=== PATIENT | male | born 1965 | race Caucasian/White ===

== ENCOUNTER 2020-02-18 03:01 | Outpatient (CLI) | payer OTHER, SELFPAY ==
[2020-02-18 18:39] LABS: SARS-CoV-2 RNA PCR Negative
== END 2020-02-18 03:02 | disposition home or self-care (01) ==
LOC: ANHCOVIDDT 03:02
PROVIDERS: PCP Internal Medicine; Visit Provider Internal Medicine Gastroenterology
DX: Z01.812 Encounter for preprocedural laboratory examination (principal); Z20.828 Contact with and (suspected) exposure to other viral communicable diseases
CPT/HCPCS: 87635; C9803; U0003

== ENCOUNTER 2020-02-20 01:22 | Day surgery (SDC) | payer OTHER, SELFPAY ==
[2020-02-16 13:54] VITALS: BMI 35.4
[2020-02-20 06:57] VITALS: BP 123/90; PULSE 78; RESP 18; TEMP 36.3; O2SAT 97; BMI 34.6
[2020-02-20] MEDS: LACTATED RINGERS 1,000 ML 150 ML IV CONT (07:09)
--- NOTE | 2020-02-20 08:00 | PM.HPGS ---
History of Present Illness History of Present Illness Consent: Risks, benefits, and alternatives have been discussed and questions answered. Patient agrees to proceed with procedure. Chief complaint: Neoplasm Screening Narrative: Blake Villafana is a 54 year old male here for first screening colonoscopy Review of Systems Constitutional: Constitutional: Denies headache(s) and Denies weakness Eyes: Eyes: Denies blurry vision ENT: Reports Normal hearing present, Denies headache(s) and Denies neck pain Cardiovascular: Cardiovascular: Denies chest pain and Denies dyspnea Respiratory: Respiratory: Denies dyspnea Gastrointestinal: Gastrointestinal: Reports no additional gastrointestinal complaints Genitourinary: Genitourinary: Denies dysuria Musculoskeletal: Musculoskeletal: Denies neck pain Integumentary/Breasts: Skin/Breast: Denies dry skin Neurologic: Reports Normal hearing present, Denies headache(s) and Denies weakness Psychiatric: Psychiatric: Denies anxiety Endocrine: Endocrine: Denies change in body appearance Hematologic/Lymphatic: Hematologic/Lymphatic: Denies easy bleeding Allergic/Immunologic: Allergic/Immunologic: Denies urticaria [facility] Past Medical History Medical History (Updated 02/20/20 @ 08:18 by Duc Beach MD) Colon cancer screening Mixed hyperlipidemia Family History Family History (Updated 05/24/15 @ 14:13 by DOCTOR UNKNOWN) Father Acute myocardial infarction Mother Family history of multiple sclerosis Other Hypertension Social History Social History Smoking status: Never smoker Alcohol intake: current Drinks per week: 6 Alcohol use details: BEERS Substance use: never Substance use type: does not use Living arrangements: with family Spiritual care concerns: No Meds Home Medications and Allergies Home Medications Medication Instructions Recorded Confirmed Type omega-3 fatty acids 1,000 mg 1,000 mg PO DAILY 01/01/20 02/16/20 History capsule atorvastatin 20 mg tablet 20 mg PO DAILY #30 tablet 01/09/20 02/16/20 Rx peg 3350-electrolytes 236 240 ml PO Q10M #4000 ml 02/18/20 02/20/20 Rx gram-22.74 gram-6.74 gram-5.86 gram solution Allergies Allergy/AdvReac Type Severity Reaction Status Date / Time No Known Allergies Allergy Verified 02/20/20 06:56 Vital Signs Vital Signs - 24 hr 02/20/20 06:57 Temperature 97.4 F L Pulse Rate 78 Respiratory Rate 18 Blood Pressure 123/90 Pulse Oximetry 97 Exam Const: General: comfortable and no acute distress HENMT: General nose exam: Normal nares present Eyes: General: appearance normal, both eyes and all related structures Neck: Neck: no JVD Resp: Auscultation: clear to auscultation bilaterally Cardio: Rate: regular rate Rhythm: regular rhythm GI: Inspection: non-distended GI Palp: Yes Soft to palpation Skin: General skin exam: normal color Neuro: General: gait normal Speech: normal speech Extrem: General: normal to inspection Psych: Mental Status: mental status grossly normal Assessment and Plan Assessment and plan (1) Colon cancer screening: Code(s): Z12.11 - Encounter for screening for malignant neoplasm of colon Status: Acute Assessment and Plan: will proceed with colonoscopy
--- NOTE | 2020-02-20 08:06 | WPDANESEPPF ---
Anes - Initial Pre Proc Eval Procedure: Operation Date: 02/20/20 08:00 Proposed Procedures p Screening Colonoscopy - Duc Beach MD Date/Time: 02/20/20 08:06 Surgeon: Duc Beach MD Pre Op Diagnosis: Neoplasm Screening Patient Data Age: 54 Gender: M Height: 6 ft 1 in Weight: 119.1 kg Last Vital Signs Temp 97.4 F L 02/20/20 06:57 Pulse 78 02/20/20 06:57 Resp 18 02/20/20 06:57 BP 123/90 02/20/20 06:57 Pulse Ox 97 02/20/20 06:57 Allergies Allergy/AdvReac Type Severity Reaction Status Date / Time No Known Allergies Allergy Verified 02/20/20 06:56 Home Medications Medication Instructions Recorded Confirmed Type omega-3 fatty acids 1,000 mg 1,000 mg PO DAILY 01/01/20 02/16/20 History capsule atorvastatin 20 mg tablet 20 mg PO DAILY #30 tablet 01/09/20 02/16/20 Rx peg 3350-electrolytes 236 240 ml PO Q10M #4000 ml 02/18/20 02/20/20 Rx gram-22.74 gram-6.74 gram-5.86 gram solution Patient hx anesthesia problems: none Family hx anesthesia problems: none PMFSH Past Medical History Medical History (Updated 02/20/20 @ 08:05 by Rajesh Gregg MD) Mixed hyperlipidemia Family History Family History (Updated 05/24/15 @ 14:13 by DOCTOR UNKNOWN) Father Acute myocardial infarction Mother Family history of multiple sclerosis Other Hypertension Social History Social History Smoking status: Never smoker Alcohol intake: current Drinks per week: 6 Alcohol use details: BEERS Substance use: never Substance use type: does not use Living arrangements: with family Spiritual care concerns: No Anes - Eval Final PreProcedure Day of Procedure 02/20/20 08:06 Patient weight: overweight Heart: regular rate and rhythm Lungs: clear to auscultation Airway: Mallampati scale class II Neurological: alert and oriented Last oral intake: >/= 8 hours ASA classification: II Emergent: no Anesthetic plan: proceed Anesthesia type and monitoring: general GIVS and standard monitoring Informed Consent: The patient's anesthetic plan and its attendant risks and benefits were discussed with the patient/family/POA. Questions were solicited and answers provided to the satisfaction of the patient/family/POA.
[2020-02-20 08:22] VITALS: BP 111/79; PULSE 66; RESP 28; O2SAT 93
[2020-02-20 08:32] VITALS: BP 117/78; PULSE 62; RESP 17; O2SAT 96
[2020-02-20 08:42] VITALS: BP 123/81; PULSE 60; RESP 16; O2SAT 96
== END 2020-02-20 08:47 | disposition home or self-care (01) ==
PROVIDERS: PCP Internal Medicine; Visit Provider Internal Medicine Gastroenterology
PROC: 0DJD8ZZ Inspection of Lower Intestinal Tract, Via Natural or Artificial Opening Endoscopic (ICD-10-PCS; CPT 45378; principal; 2020-02-20 08:00)
DX: Z12.11 Encounter for screening for malignant neoplasm of colon (principal); E78.2 Mixed hyperlipidemia; K57.30 Diverticulosis of large intestine without perforation or abscess without bleeding
CPT/HCPCS: 45378; 87635; C9803; J2704; J7120; U0003

== ENCOUNTER 2024-01-15 15:32 | Outpatient (CLI) | payer BC, SELFPAY ==
--- NOTE | ~2024-01-15 | XR_ITS ---
EXAMINATION: XR finger 4th RT min 2V DATE: 01/15/2024 15:57 INDICATION: Injury to the right fourth digit TECHNIQUE: Dorsal palmar, lateral and oblique views of the right fourth digit were obtained COMPARISON: None FINDINGS: There is 3 mm dorsal subluxation of the right fourth middle phalanx at the proximal interphalangeal j oint. There is dorsal and ulnar subluxation at the fifth proximal interphalangeal joint with and abdirashid re osteoarthritis with remodeling and loss of bone stock at the ulnar side of the head of the fifth p roximal phalanx. Corticated ossicle overlying the radial side of the head of the fifth proximal phala nx which could represent either chronic nonunited fracture fragment or heterotopic ossicle. No acute fracture. Mild osteoarthritis at the remaining interphalangeal joints. IMPRESSION: 1. 3 mm dorsal subluxation at the fourth proximal interphalangeal joint. No acute fracture. 2. Likely chronic/ulnar subluxation at the fifth proximal interphalangeal joint with severe secondary osteoarthritis. Reviewed, dictated and finalized at location A. IMPRESSION: 1. 3 mm dorsal subluxation at the fourth proximal interphalangeal joint. No acu te fracture. 2. Likely chronic/ulnar subluxation at the fifth proximal interphalangeal joint with severe secondary osteoarthritis.
== END 2024-01-15 15:33 | disposition home or self-care (01) ==
LOC: ANHIMG 15:36
PROVIDERS: PCP Family Medicine; Visit Provider Nurse Practitioner Family
DX: S69.90XA Unspecified injury of unspecified wrist, hand and finger(s), initial encounter (principal); X58.XXXA Exposure to other specified factors, initial encounter
CPT/HCPCS: 73140

== ENCOUNTER 2024-03-06 15:53 | Outpatient (CLI) | payer BC, SELFPAY ==
--- NOTE | ~2024-03-06 | XR_ITS ---
XR hip RT min 2V Ordering provider: Ashwini Jose APRN History: . M25.551 - Pain in right hip . Comparison: None. FINDINGS: BONES: No acute fracture or dislocation. HIP JOINT SPACES: Moderate osteoarthritic changes. SACROILIAC JOINT SPACES/LUMBAR SPINE: The sacroiliac joint spaces are normal. Mild degenerative suarez es of the visualized lower lumbar spine. PUBIC SYMPHYSIS: Normal. SOFT TISSUES: Normal. IMPRESSION: No acute osseous abnormality pelvis and right hip. Mild to moderate right hip osteoarthritic changes. Reviewed, dictated and finalized at location A.
== END 2024-03-06 15:54 | disposition home or self-care (01) ==
LOC: ANHIMG 15:55
PROVIDERS: PCP Family Medicine; Visit Provider Nurse Practitioner Family
DX: M16.11 Unilateral primary osteoarthritis, right hip (principal)
CPT/HCPCS: 73502

== ENCOUNTER 2024-03-19 16:31 | Outpatient (CLI) | payer BC, SELFPAY ==
--- NOTE | ~2024-03-19 | XR_ITS ---
EXAMINATION: XR finger 4th RT min 2V DATE: 03/19/2024 16:50 INDICATION: Phalangeal fracture at the right fourth digit TECHNIQUE: Dorsal palmar, lateral and 2 oblique views of the right fourth digit were obtained COMPARISON: None FINDINGS: There is increasing dorsal/ulnar subluxation of the right fourth middle phalanx of the proximal inter phalangeal joint. There is a new incongruity along the proximal articular surface at the base of the middle phalanx with approximately 3 mm step-off between the dorsal aspect of the articular surface an d the volar side of the articular surface which could be due to either an impacted fracture or accele rated osteoarthritis with remodeling of the articular surface resulting from the malalignment. Simila r more advanced malalignment with dorsal and ulnar subluxation and angulation at the fifth proximal i nterphalangeal joint with advanced osteoarthritis with remodeling of both the base of the middle phal anx and head of the proximal phalanx. Additional mild osteoarthritis at a few of the remaining visual ized interphalangeal joints as well as at the second-fourth metacarpophalangeal joints. IMPRESSION: 1. Progression of dorsal and ulnar subluxation at the right fourth proximal interphalangeal joint wit h incongruity along the articular surface at the base of the middle phalanx which could represent eit her an impacted fracture or remodeling of the articular surface due to advanced secondary osteoarthri tis. 2. Similar more advanced findings of chronic dorsal/ulnar subluxation and advanced osteoarthritis at the fifth proximal interphalangeal joint. Reviewed, dictated and finalized at location A. IMPRESSION: 1. Progression of dorsal and ulnar subluxation at the right fourth proximal int erphalangeal joint with incongruity along the articular surface at the base of the middle phalanx which could represent either an impacted fracture or remodel ing of the articular surface due to advanced secondary osteoarthritis. 2. Similar more advanced findings of chronic dorsal/ulnar subluxation and advan elyse osteoarthritis at the fifth proximal interphalangeal joint.
== END 2024-03-19 16:32 | disposition home or self-care (01) ==
LOC: ANHIMG 16:33
PROVIDERS: PCP Family Medicine; Visit Provider Family Medicine
DX: S62.609A Fracture of unspecified phalanx of unspecified finger, initial encounter for closed fracture (principal); X58.XXXA Exposure to other specified factors, initial encounter
CPT/HCPCS: 73140

== ENCOUNTER 2024-04-29 14:02 | Outpatient (CLI) | payer BC, SELFPAY ==
--- NOTE | ~2024-04-29 | CT_ITS ---
EXAMINATION: CT hand RT wo con DATE: 04/29/2024 14:25 INDICATION: Malalignment and possible fracture at the fourth proximal interphalangeal joint. TECHNIQUE: High resolution computed tomography (CT) of the right hand was performed without intraveno us contrast. Additional sagittal and coronal reconstructions were performed. Additional rotating surf chetan rendered 3-D images of the hand were created the request of the referring physician. Automated ex posure control and iterative reconstruction technique were employed. The dose-length product was 562. 57 mGy-cm. COMPARISON: None FINDINGS: There is an age-indeterminate ununited displaced fracture at the palmar base of the right fourth midd le phalanx which remains normally positioned overlying the articular surface of the head of the fourt h proximal phalanx. The remainder of the middle phalanx is dorsally dislocated with approximately 5 m m proximal and dorsal displacement of the remainder of the middle phalanx with respect to both the sm all fracture fragment as well as the head of the proximal phalanx. There is additional mild ulnar ang ulation the middle phalanx with respect to the proximal phalanx. At the fifth proximal interphalangeal joint there is similar ulnar angulation and dorsal/ulnar disloc ation and proximal migration of the fifth middle phalanx with respect to the head of the proximal pha lanx. There appears be a similar but chronic appearing fracture along the palmar base of the middle p halanx with small corticated fragment overlying the central aspect the head of the proximal phalanx. There appears be secondary severe osteoarthritis at the fifth proximal interphalangeal joint with rem odeling of the articular cortices at both the base of the middle phalanx and head of the proximal pha lanx. There is an additional tiny corticated ossicle positioned along the ulnar side of the head of t he fifth proximal phalanx which could represent either a second tiny displaced fracture fragment or h eterotopic ossification related to chronic soft tissue injury potentially of the ulnar collateral lig ament complex. No other fractures identified. There is polyarticular osteoarthritis at the right hand and wrist, mod erate severity at the triscaphe joint with prominent subarticular cystlike change at the distal pole of the scaphoid and mild at the majority the remaining joints at the hand and wrist. IMPRESSION: 1. Chronic appearing fracture dislocation fifth middle phalanx at the proximal interphalangeal joint. 2. Similar age-indeterminate but likely more recent fracture dislocation of the right fourth middle p halanx at the proximal interphalangeal joint. Reviewed, dictated and finalized at location A. ING DRUM OPERATOR IMPRESSION: 1. Chronic appearing fracture dislocation fifth middle phalanx at the proximal interphalangeal joint. 2. Similar age-indeterminate but likely more recent fracture dislocation of the right fourth middle phalanx at the proximal interphalangeal joint.
== END 2024-04-29 14:03 | disposition home or self-care (01) ==
PROVIDERS: PCP Family Medicine; Visit Provider Plastic Surgery
DX: S62.609A Fracture of unspecified phalanx of unspecified finger, initial encounter for closed fracture (principal); X58.XXXA Exposure to other specified factors, initial encounter
CPT/HCPCS: 73200

== ENCOUNTER 2024-05-29 09:12 | Outpatient (CLI) | payer BC, SELFPAY ==
--- NOTE | 2024-05-29 14:08 | ECG_ITS ---
Test Date: 2024-05-29 14:33:27 Measurements Intervals [place] Rate: 62 P: 39 PA: 171 QRS: -18 QRSD: 99 T: 7 QT: 404 QTc: 411 Interpretive Statements SINUS RHYTHM LOW QRS VOLTAGE IN PRECORDIAL LEADS [QRS DEFLECTION < 1.0 mV IN CHEST LEADS] MODERATE VOLTAGE CRITERIA FOR LVH, CONSIDER NORMAL VARIANT [MEETS CRITERIA IN ONE OF: R(aVL), S(V1), R(V5), R(V5/V6)+S(V1)] POSSIBLE ANTERIOR MYOCARDIAL INFARCTION [30 ms Q WAVE IN V3/V4, OR R < 0.2 mV IN V4], OF INDETERMINATE AGE No previous ECG available for comparison Electronically Signed On 06-02-2024 14:33:01 CORPORATE LEGAL SECRETARY by Yordan Quiñones M.D.
== END 2024-05-29 09:13 | disposition home or self-care (01) ==
PROVIDERS: PCP Family Medicine; Visit Provider Surgery
DX: Z01.818 Encounter for other preprocedural examination (principal); K42.9 Umbilical hernia without obstruction or gangrene
CPT/HCPCS: 36415; 86850; 86900; 86901; 93005

== ENCOUNTER 2024-06-05 01:22 | Day surgery (SDC) | payer BC, SELFPAY ==
[2024-05-26 08:49] VITALS: BMI 34.0
--- NOTE | 2024-05-26 09:04 | SUR.PREOP ---
Report to the Outpatient Waiting Room, entrance under the green pavilion located off [facility], at time 1000 on date 06-05-24. Planned Procedure Time: 1200.? Time changes happen often and if your time is changed the preop area will call you the afternoon before. - You and your visitor will be asked to self-screen and do not enter if you have any COVID symptoms. Please call surgeon if you need to reschedule. - A mask is optional within the hospital at this time. Patients may have clear liquids (water, carbonated beverages, clear teas, apple juice) until 3 hours prior to surgery with a maximum of 20 ounces. - No food from midnight until time of surgery and no smoking. This includes no chewing gum, candy or mints. - Infants may have breast milk until 4 hours before surgery, formula 6 hours prior to surgery. - Children will be allowed to drink immediately following surgery.? If applicable, please bring a bottle or sippy cup to assist with drinking. Juice, water, soda, and popsicles are readily available.? For infants on formula, please bring formula the day of surgery.? Pacifiers are allowed. Take only the following medications with a SIP of water on the morning of surgery: N/A DO NOT STOP ANY OF YOUR OTHER PRESCRIPTION MEDICATIONS PRIOR TO SURGERY EXCEPT THE FOLLOWING Medications to discontinue per physician VITAMINS AND SUPPLIMENTS X 3 DAYS Date to take last dose Sunday06-01-24 Please no make-up, nail indian, hairspray, perfume, deodorant, or body powder the day of surgery.? No jewelry (including any body piercings) or valuables the day of surgery, leave them at home.? Please take a shower or bath the night before, or the morning of, surgery with an antibacterial soap.? Wear comfortable, loose fitting clothing.? Children are encouraged to wear pajamas. - Jewelry must be removed prior to entering the operating room.? Rings and piercings that are not removed may be cut off. - The hospital will not accept responsibility for valuables.? - Please leave all valuables, including medications, at home the day of surgery. If you are going home after surgery, a licensed truck driver's offsider must drive you home.? - NO public transportation without another adult if you receive anesthesia. - We recommend that an adult stay with you for 24 hours following discharge. - We also recommend that you do not drive, make important decision, drink alcoholic beverages, or take any drugs that were not prescribed by your health care provider for at least 24 hours after your discharge time. For Pediatric surgeries, we recommend two adults accompany the child home. Follow any additional instructions given to you from your surgeon. Telephone instructions given to LEIDY ANN and asked if any additional questions and then verbalized understanding. Patient advised to call surgeon office or pre surgery nurse liaison [phone] if any additional questions.
[2024-06-05] VITALS (11 sets, daily range): BP systolic 120–150; BP diastolic 67–100; PULSE 57–72; RESP 12–18; TEMP 36.2–36.6; O2SAT 91–100
--- NOTE | 2024-06-05 10:17 | P.PNAN_ITS ---
Anes - Initial Pre Proc Eval Procedure: Operation Date: 06/05/24 12:00 Proposed Procedures p Robotic Assisted Umbilical Hernia Repair with Mesh - Tanya Mohr MD Date/Time: 06/05/24 10:17 Surgeon: Tanya Mohr MD Pre Op Diagnosis: umbilical hernia Patient Data Age: 59 Gender: M Height: 1.85 m Weight: 120.1 kg Allergies Allergy/AdvReac Type Severity Reaction Status Date / Time No Known Allergies Allergy Verified 05/26/24 09:27 Home Medications ?Medication ?Instructions ?Recorded ?Confirmed ?Type omega-3 fatty acids 1,000 mg 1,000 mg PO DAILY 01/01/20 05/26/24 History capsule (Fish Oil Concentrate) multivitamin 1 tablet PO DAILY 06/20/21 05/26/24 History sildenafil 100 mg tablet 100 mg PO DAILY PRN sexual 05/14/23 05/26/24 Rx activity #15 tabs atorvastatin 40 mg tablet 40 mg PO DAILY #90 tabs 08/17/23 05/26/24 Rx famotidine 40 mg tablet 40 mg PO DAILY PRN acid reflux #90 09/05/23 05/26/24 Rx tabs testosterone cypionate 200 mg/mL 200 mg IM .every two weeks #10 mL 09/05/23 05/26/24 Rx intramuscular oil Patient hx anesthesia problems: none Family hx anesthesia problems: none Results Review: All pre-operative results and documents have been reviewed as part of the pre- operative evaluation. [facility] Past Medical History Medical History Elevated fasting glucose Low testosterone Colon cancer screening Mixed hyperlipidemia Surgical History Surgical History H/O hand surgery repair of broken 5th digit. S/P right rotator cuff repair Family History Family History Father Acute myocardial infarction Mother Family history of multiple sclerosis Other Hypertension Social History Social History Smoking status: Never smoker Second hand tobacco smoke exposure: No Alcohol intake: current Drinks per week: 4 Alcohol use details: beer Substance use: never Substance use type: does not use Lack of Transportation: No Lack of Food: Never True Current Housing: I Have Housing Concerned About Future Housing: No Difficulty Paying Gas/Electric Bills: No Difficulty Paying for Meds: No Currently Unemployed: No Education: High School Diploma/GED Difficulty w/ Childcare or Family Care: No Living arrangements: alone Spiritual care concerns: No Anes - Eval Final PreProcedure Day of Procedure 06/05/24 10:17 Patient weight: obese Heart: regular rate and rhythm Lungs: clear to auscultation Airway: Mallampati scale Neurological: alert and oriented Last oral intake: >/= 8 hours ASA classification: II Emergent: no Anesthetic plan: proceed Anesthesia type and monitoring: general ETT and standard monitoring Results Review: All pre-operative results and documents have been reviewed as part of the pre- operative evaluation. Informed Consent: The patient's anesthetic plan and its attendant risks and benefits were discussed with the patient/family/POA. Questions were solicited and answers provided to the satisfaction of the patient/family/POA.
[2024-06-05] MEDS: LACTATED RINGERS 1,000 ML 30 ML IV CONT ×2 (10:30→12:40)
--- NOTE | 2024-06-05 11:03 | PM.IMHP ---
H&P: HPI History of Present Illness Date/Time: 06/05/24 11:03 Chief Complaint: Periumbilical hernia Narrative: Blake is a 58 y/o male who presents to the office at the request of Dr. Patel for evaluation of a umbilical hernia. Patient states he first noticed this about two years ago. He denies any abdominal pain. States the bulge is reducible. Reports a gradually increase of the size of the bulge. Denies any issues with bowel habits. Review of Systems Review of Systems: All systems reviewed & are unremarkable except as noted in HPI and below PMFSH Past Medical History Medical History Elevated fasting glucose Low testosterone Colon cancer screening Mixed hyperlipidemia Surgical History Surgical History H/O hand surgery repair of broken 5th digit. S/P right rotator cuff repair Family History Family History Father Acute myocardial infarction Mother Family history of multiple sclerosis Other Hypertension Social History Social History Smoking status: Never smoker Second hand tobacco smoke exposure: No Alcohol intake: current Drinks per week: 4 Alcohol use details: beer Substance use: never Substance use type: does not use Lack of Transportation: No Lack of Food: Never True Current Housing: I Have Housing Concerned About Future Housing: No Difficulty Paying Gas/Electric Bills: No Difficulty Paying for Meds: No Currently Unemployed: No Education: High School Diploma/GED Difficulty w/ Childcare or Family Care: No Living arrangements: alone Spiritual care concerns: No Meds Home Medications and Allergies Home Medications ?Medication ?Instructions ?Recorded ?Confirmed ?Type omega-3 fatty acids 1,000 mg 1,000 mg PO DAILY 01/01/20 05/26/24 History capsule (Fish Oil Concentrate) multivitamin 1 tablet PO DAILY 06/20/21 05/26/24 History sildenafil 100 mg tablet 100 mg PO DAILY PRN sexual 05/14/23 05/26/24 Rx activity #15 tabs atorvastatin 40 mg tablet 40 mg PO DAILY #90 tabs 08/17/23 05/26/24 Rx famotidine 40 mg tablet 40 mg PO DAILY PRN acid reflux #90 09/05/23 05/26/24 Rx tabs testosterone cypionate 200 mg/mL 200 mg IM .every two weeks #10 mL 09/05/23 05/26/24 Rx intramuscular oil Allergies Allergy/AdvReac Type Severity Reaction Status Date / Time No Known Allergies Allergy Verified 05/26/24 09:27 Exam Const: General: cooperative, comfortable, no acute distress and obese Resp: Auscultation: clear to auscultation bilaterally Cardio: Rate: regular rate Rhythm: regular rhythm GI: Inspection: normal to inspection, non-distended and obesity GI Palp: Yes abdominal tenderness, Yes Soft to palpation, Yes Tenderness to palpation present (GI) and Yes Hernia present Other: periumbilical hernia measuring approximately 3.5 cm Skin: General skin exam: normal color and no rashes or lesions noted Neuro: General: patient oriented x3 and CN's II-XI intact bilaterally Extrem: General: normal to inspection and full ROM Psych: Appearance: grossly normal Assessment and Plan Assessment and plan (1) Umbilical hernia: Qualifiers: Obstruction and gangrene presence: without obstruction or gangrene Qualified Code(s): K42.9 - Umbilical hernia without obstruction or gangrene Code(s): K42.9 - Umbilical hernia without obstruction or gangrene Status: Acute Assessment and Plan: will set up for robotic assisted repair with mesh
--- NOTE | 2024-06-05 11:05 | WPDHPUPDATE1 ---
History and Physical Update Update Date/Time: 06/05/24 11:05 History and Physical has been reviewed, including an updated exam of the patient. There are NO changes in the patient's condition. Risks, benefits, and alternatives have been discussed and questions answered. Patient agrees to proceed with procedure.
[2024-06-05] MEDS: ACETAMINOPHEN 500 MG TABLET 1000 MG PO (11:15)
[2024-06-05] MEDS: KETOROLAC 15 MG/ML VIAL (*BKC) IV PUSH (11:15)
[2024-06-05] MEDS: ceFAZolin 3 GM/D5W 100 ML 100 ML IVPB (11:36)
[2024-06-05] MEDS: BUPIVACAINE/EPINEPHRINE 0.5% 10 ML VIAL 30 ML INFILTRATE (11:52)
--- NOTE | 2024-06-05 12:54 | W.PM.PROC2 ---
Procedure Note - Detailed Date of Procedure 06/05/24 Pre-op Diagnosis umbilical hernia Post-op Diagnosis Same Procedure Performed Robotic assisted repair incarcerated umbilical hernia with defect measuring 3.5 cm Surgeon Tanya Mohr MD Anesthesia General and Local Indications 59 y/o M presenting c moderate sized symptomatic umbilical hernia Findings 3.5 cm umbilical hernia with incarcerated preperitoneal fat and omentum Description of Procedure The patient was taken the operating room placed in the supine position. After adequate induction of general anesthesia, the patient was prepped and draped in normal sterile fashion. A time-out was then done to verify the patient's identity as well as the procedure being performed. I began by making a 8 mm incision in the left upper quadrant. Through this, a Veress needle was placed into the peritoneal cavity and CO2 gas was insufflated. After adequate pneumoperitoneum was achieved, a 8 mm trocar was placed through this incision. I then placed the laparoscope through this trocar site and under direct visualization I placed a 8 mm port in the left mid abdomen as well as an additional 8 mm port in the left lower abdomen. The robot was then docked to the 3 port sites. I then went to the robotic console. I began by identifying the hernia. A moderate-sized incarcerated umbilical hernia was noted. I then was able to reduce this hernia. The hernia was noted to contain a large amount of preperitoneal fat and omentum. Once reduced, I also reduced and dissected out the hernia sac. I then closed the approximately 3.5 cm defect with 0 strata fix suture. I then placed a 15 x 10 cm Ventralight mesh into the abdominal cavity. The positional stitch was placed in the middle of the mesh and brought up centering the mesh over the defect. Once this was done, I used 2 x 2 0 V lock suture to suture the mesh to the abdominal wall. Once the mesh was sutured in, I was happy with our tension-free repair. The mesh was noted to have good overlap of the defect. At this point, the robot was undocked and all ports were removed. All port sites were then closed with 4 O Monocryl subcuticular suture. The patient tolerated the procedure well, is extubated in the operating room postoperative, and will be transferred to the recovery room in stable condition. Implants 15 x 10 cm Ventralight mesh Estimated Blood Loss 10 Drains No Packing No Pathology None sent Complications No immediate complications Condition Stable Disposition PACU [facility] Billing Surgery - Charge Forward: Surgery Billing
[2024-06-05] MEDS: fentaNYL CITRATE INJ (*CRX) 100 MCG/2 ML VIAL 25 MCG IV PUSH ×4 (12:56→13:44)
[2024-06-05] MEDS: oxyCODONE HCL (*CRX) 5 MG TAB IR PO (14:15)
== END 2024-06-05 15:10 | disposition home or self-care (01) ==
PROVIDERS: PCP Family Medicine; Visit Provider Surgery
PROC: (CPT 49594; principal; 2024-06-05 12:00)
DX: K42.9 Umbilical hernia without obstruction or gangrene (principal); E29.1 Testicular hypofunction; E66.9 Obesity, unspecified; Z68.34 Body mass index [BMI] 34.0-34.9, adult; Z98.890 Other specified postprocedural states; Z82.49 Family history of ischemic heart disease and other diseases of the circulatory system
CPT/HCPCS: 49594; S2900; A9270; C1781; J0690; J1885; J2250; J2270; J3010; J7030; J7120

== ENCOUNTER 2024-08-18 08:28 | Outpatient (CLI) | payer BC, SELFPAY ==
--- NOTE | ~2024-08-18 | XR_ITS ---
XR finger 4th RT min 2V Ordering provider: Rian Young MD History: . S62.624P - Displaced fracture of middle phalanx of right ... . Comparison: March 19, 2024 FINDINGS: BONES: Posterior subluxation of the middle phalanx of the right fourth finger. 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 Infection is less likely. SOFT TISSUES: Minimal soft tissue swelling is seen in the area of the proximal interphalangeal joint. IMPRESSION: Subluxation in the proximal interphalangeal joint which is slightly increased compared to the previou s study. Reviewed, dictated and finalized at location A. IMPRESSION: Subluxation in the proximal interphalangeal joint which is slightly increased c ompared to the previous study.
--- OUTSIDE RECORDS SUMMARY | 2024-08-18 08:53 | XMS_ITS | Referral Summary ---
Author Organization [facility] [facility] Address [address] [place] [address] Care Team Providers Care Photo Mask Cleaner Name Role Phone Unknown, Notinfile Primary Care Provider Unavail able Allergies No known active allergies Medications No known medications Active Problems Problem Noted Date Diagnosed Date [place]-neck deformity of finger 10/12/2015 Social History Tobacco Use Types Packs/Day Years Used Date Smoking Tobacco: Never Personal Safety Answer Date Recorded Getting School Help Needed Not on file 08/10 Sex and Gender Information Value Date Recorded Sex Assigned at Not on file 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
--- OUTSIDE RECORDS SUMMARY | 2024-08-18 08:53 | XMS_ITS | Clinical Summary ---
Author Organization [facility] [place] 163 [facility] Address [address] [place] [address] Care Team Providers Care Hyperion Developer Name Role Phone Unknown, Notinfile Primary Care Provider Unavail able Allergies No known active allergies Medications No known medications Active Problems Problem Noted Date Diagnosed Date [place]-neck deformity of finger 10/12/2015 Family History Medical History Relation Name Comments Alcohol abuse Father Family history of alcoholism - (Added by TW Conv) Heart disease Father Family history of cardiac disorder - (Added by TW Conv) Stroke Mother Family history of cerebrovascular accident (CVA) - (Added by TW Conv) Relation Name Status Comments Father Mother Social History Tobacco Use Types Packs/Day Years Used Date Smoking Tobacco: Never Personal Safety Answer Date Recorded Getting School Help Needed Not on file 08/10 Sex and Gender Information Value Date Recorded Sex Assigned at Not on file 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 Gender Identity Not on file Sexual Orientation Not on file Obstetrics History Last Filed Vital Signs Vital Sign Reading Time Taken Comments Blood Pressure - - Pulse - - Temperature - - Respiratory Rate - - Oxygen Saturation - - Inhaled Oxygen Concentration - - Weight 113.4 kg (250 lb) 10/12/2015 1:46 PM CDT Height 185.4 cm (6' 1 ) 10/12/2015 1:46 PM CDT Body Mass Index 32.98 10/12/2015 1:46 PM CDT Plan of Treatment Health Maintenance Due Date Last Done Comments Colon Cancer Screening-Colonoscopy 1965 Depression Screening 1963 Hepatitis C Screening 1963 Prostate Cancer Screening-PSA 1963 DTaP/Tdap/Td Vaccine (1 - Tdap) 1974 Hepatitis B Screening 1981 Regular Well Visit/Exam 18-64 1981 Zoster Vaccine (1 of 2) 2013 Covid-19 Vaccine (2023-2 5 season) 2024 04/09/2021, 09/17/2020, 08/26/2020 Influenza Vaccine (#1) 2024 Pneumococcal vaccine <65 Aged Out No longer eligible based on patient's age to complete this topic Insurance [facility] Care Teams Hyperion Developer Relationship Specialty Start Date End Date Unknown, Notinfile PCP - General 03/17/24
== END 2024-08-18 08:29 | disposition home or self-care (01) ==
PROVIDERS: PCP Family Medicine; Visit Provider Plastic Surgery
DX: S62.624P Displaced fracture of middle phalanx of right ring finger, subsequent encounter for fracture with malunion (principal); X58.XXXD Exposure to other specified factors, subsequent encounter
CPT/HCPCS: 73140

== ENCOUNTER 2024-08-20 00:43 | Day surgery (SDC) | payer BC, SELFPAY ==
[2024-08-14 12:28] VITALS: BMI 35.3
--- NOTE | 2024-08-14 12:45 | PC.NURSE ---
Report to the Outpatient Waiting Room, entrance under the green pavilion located off [facility], at 0715 on 08-20-24. Planned Procedure Time: 0915.? Time changes happen often and if your time is changed the preop area will call you the afternoon before. - You and your visitor will be asked to self-screen and do not enter if you have any COVID symptoms. Please call surgeon if you need to reschedule. - A mask is optional within the hospital at this time. Patients may have clear liquids (water, carbonated beverages, clear teas, apple juice) until 3 hours prior to surgery with a maximum of 20 ounces. NPO for 8hr per Abernathie's orders - No food from midnight until time of surgery and no smoking, or chewing tobacco (or any form of nicotine). No chewing gum, candy or mints. - Infants may have breast milk until 4 hours before surgery, formula 6 hours prior to surgery. - Children will be allowed to drink immediately following surgery.? If applicable, please bring a bottle or sippy cup to assist with drinking. Juice, water, soda, and popsicles are readily available.? For infants on formula, please bring formula the day of surgery.? Pacifiers are allowed. Take only the following medications with a SIP of water on the morning of surgery: None DO NOT STOP ANY OF YOUR OTHER PRESCRIPTION MEDICATIONS PRIOR TO SURGERY EXCEPT THE FOLLOWING Hold all vitamins and supplements for 3 days per anesthesiologist. Medications to discontinue per physician: vitamins and supplements Date to take last dose: 08-17-24 Please no make-up, nail gibraltarian, hairspray, perfume, deodorant, or body powder the day of surgery.? No jewelry (including any body piercings) or valuables the day of surgery, leave them at home.? Please take a shower or bath the night before, or the morning of, surgery with an antibacterial soap.? Wear comfortable, loose fitting clothing.? Children are encouraged to wear pajamas. - Jewelry must be removed prior to entering the operating room.? Rings and piercings that are not removed may be cut off. - The hospital will not accept responsibility for valuables.? - Please leave all valuables, including medications, at home the day of surgery. If you are going home after surgery, a licensed four horse hitch driver must drive you home.? - NO public transportation without another adult if you receive anesthesia. - We recommend that an adult stay with you for 24 hours following discharge. - We also recommend that you do not drive, make important decision, drink alcoholic beverages, or take any drugs that were not prescribed by your health care provider for at least 24 hours after your discharge time. For Pediatric surgeries, we recommend two adults accompany the child home. Follow any additional instructions given to you from your surgeon. Telephone instructions given to Blake Villafana and asked if any additional questions and then verbalized understanding. Patient advised to call surgeon office or pre surgery nurse liaison [phone] if any additional questions.
[2024-08-20] VITALS (9 sets, daily range): BP systolic 109–141; BP diastolic 66–92; PULSE 53–67; RESP 12–16; TEMP 36.1–36.3; O2SAT 95–98
--- NOTE | ~2024-08-20 | XR_ITS ---
XR surgery orthopedic Indication: Right ring finger volar plate arthroplasty TECHNIQUE: Fluoroscopy used during Right ring finger volar plate arthroplasty performed by [Yusra Young MD] on 08/20/2024. 19 seconds of fluoroscopy with 4 fluoroscopic images captured. FINDINGS: Correlate with procedure note. IMPRESSION: Fluoroscopy used during Right ring finger volar plate arthroplasty. Reviewed, dictated and finalized at location A.
--- OUTSIDE RECORDS SUMMARY | 2024-08-20 00:46 | XMS_ITS | Clinical Summary ---
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
--- OUTSIDE RECORDS SUMMARY | 2024-08-20 00:46 | XMS_ITS | Referral Summary ---
Author Organization [facility] [place] 163 [facility] Address [address] [place] [address] Care Team Providers Care Softball Core Molder Name Role Phone Unknown, Notinfile Primary Care Provider Unavail able Allergies No known active allergies Medications No known medications Active Problems Problem Noted Date Diagnosed Date [place]-neck deformity of finger 10/12/2015 Social History Tobacco Use Types Packs/Day Years Used Date Smoking Tobacco: Never Personal Safety Answer Date Recorded Getting School Help Needed Not on file 08/10 Sex and Gender Information Value Date Recorded Sex Assigned at Not on file 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
--- NOTE | 2024-08-20 06:51 | WPDHPUPDATE1 ---
History and Physical Update Update Date/Time: 08/20/24 06:51 Patient seen and examined in pre-operative holding area. No interval change in medical history or symptoms. Patient recalls previous discussion of benefits and alternatives to procedure. Continues to desire to proceed with right ring finger pipjoint volar plate arthroplasty . Reviewed procedure, post-op expectations and risks including but not limited to bleeding, infection, injury to tendon/nerve/vessel, decreased hand function, stiffness, RSD, no change or worsening of symptoms. I discussed the possible use of assistants and their participation in the case. Patient stated understanding and signed the consent form wishing to proceed.
--- NOTE | 2024-08-20 06:51 | W.PM.PROC2 ---
Procedure Note - Detailed Date of Procedure 08/20/24 Pre-op Diagnosis fracture dislocation right ring finger middle phalanx Post-op Diagnosis Same Procedure Performed right ring finger fracture dislocation reduction volar plate repair/arthroplasty and a2 darrell repair Surgeon Rian Young MD Land Acquisition Manager janet flores pa-c Anesthesia MAC Description of Procedure INFORMED CONSENT: The patient was seen and examined and marked in the pre-op area.? The patient signed the consent form. PROCEDURE IN DETAIL:The patient taken back to OR on the stretcher in supine position. Time out performed with anesthesia, surgeon and staff agreeing on patient's name site and surgery to be performed SCDs were placed on the lower extremities and inflated. A tourniquet was placed on {right} upper extremity and antibiotics given IV After anesthesia administered sedation I injected {6}cc 1%lido i and 0.5% marcaine plain for digital block in the palm The?{right upper extremity}?was prepped and draped in sterile fashion the??{right upper extremity} was? exsanguinated with Esmarch bandage and tourniquet inflated to 250mmHg I proceeded with using a 15 blade to make Sarah incisions over the right ring finger PIP joint going proximally to the MP joint flexion crease and distally to the PIP joint flexion crease. Skin flaps were elevated in subcutaneous plane. Littler scissors were used to spread through subcutaneous tissue down to the PIP joint noting signficiant distortion in anatomy and partial tear of a2 darrell.. FDS and FDP tendons were retracted as needed and I used a 15 blade to release the volar plate from its distal insertion. I sharply released the collateral ligaments with 15 blade scalpel. The neurovascular bundles were protected throughout the procedure after being identified. Having released the volar plate and collateral ligaments I was able to shotgun open the joint to expose the proximal and distal articular surface and the defect on the middle phalanx.The impacted volar fragment was well healed and there was clear damage to the volar articular surface on the middle phalanx making fixation impractical. The decision was made to proceed with volar plate arthroplasty. I proceeded with placing an arthrex corkscrew anchor into the volar aspect of the middle phalanx in standard fashion. mini c-arm was used to verify reduction and screw placement on multiple views. The joint was placed in reduction and noted the volar plate was too scarred and retracted to fully resurface the volar articular surface and fill the fracture defect. The decision was made to use one slip of fds to reconstruct the volar plate. The 3-0 fiberwire attached to the corkscrew anchor was used to suture the ulnar fds tendon down into the defect while the joint was reduced. a 0.045 k-wire was then placed retrograde from p2 to p1 to help secure joint reduction and position verified on multiple views of fluoro. The slip of FDS tendon was then sutured using 3-0 fiberwire to the volar plate. The ulnar FDS flip proximal to this volar plate repair was released. There was good coverage of both FDS and volar plate over the volar surface of pipjoint with good tension. Next I proceeded with repairing the a2 darrell. I dissected a combination of scar tissue, sheath and residual darrell until able to approximate and repair darrell to cover the flexor tendons. This was secured with 3-0 vicryl. I irrigated with normal saline and closed with 4-0 chromic. The k-wire was trimmed appropriately and covered with betadine soaked alcohol swab and pin cover. A dressing of xeroform, 4x4, angelica, and an ulnar gutter splint was applied for patient safety, security, and comfort and secured with an chetan bandage after the tourniquet was let down noting the hand was warm and well perfused. The patient was then awaken from anesthesia and transferred to the recovery room in stable condition.? Complications - none EBL- 3cc Disposition - home in stable conditions Janet Flores PA-C was essential for positioning, retraction, closure and dressing placement [facility] [place] Surgery - Charge Forward: Surgery Billing ([id number] same for janet arias )
[2024-08-20] MEDS: LACTATED RINGERS 1,000 ML 30 ML IV CONT (07:15)
--- NOTE | 2024-08-20 08:54 | P.PNAN_ITS ---
Anes - Initial Pre Proc Eval Procedure: Operation Date: 08/20/24 09:15 Proposed Procedures p Right Ring Finger Volar Plate Arthroplasty - Rian Young MD Date/Time: 08/20/24 08:54 Surgeon: Rian Young MD Pre Op Diagnosis: Closed Fx of Middle Phalanx of Right Ring Finger Patient Data Age: 59 Gender: M Height: 1.85 m Weight: 118.4 kg Last Vital Signs Temp 97.0 F L 08/20/24 08:14 Pulse 66 08/20/24 08:14 Resp 16 08/20/24 08:14 BP 132/92 H 08/20/24 08:14 Pulse Ox 97 08/20/24 08:14 O2 Del Method Room Air 08/20/24 08:14 Allergies Allergy/AdvReac Type Severity Reaction Status Date / Time No Known Allergies Allergy Verified 08/20/24 08:07 Home Medications ?Medication ?Instructions ?Recorded ?Confirmed ?Type omega-3 fatty acids 1,000 mg 2,000 mg PO DAILY 01/01/20 08/20/24 History capsule (Fish Oil Concentrate) sildenafil 100 mg tablet 100 mg PO DAILY PRN sexual 05/14/23 08/14/24 Rx activity #15 tabs atorvastatin 40 mg tablet 40 mg PO DAILY #90 tabs 08/17/23 08/20/24 Rx famotidine 40 mg tablet 40 mg PO DAILY PRN acid reflux #90 09/05/23 08/14/24 Rx tabs testosterone cypionate 200 mg/mL 200 mg IM .every two weeks #10 mL 06/12/24 08/14/24 Rx intramuscular oil Patient hx anesthesia problems: none Family hx anesthesia problems: none Results Review: All pre-operative results and documents have been reviewed as part of the pre- operative evaluation. [facility] Past Medical History Medical History Elevated fasting glucose Low testosterone Colon cancer screening Mixed hyperlipidemia Surgical History Surgical History H/O umbilical hernia repair 06/05/24 Robotic assisted repair incarcerated umbilical hernia with defect measuring 3.[address] Mohr H/O hand surgery repair of broken 5th digit. S/P right rotator cuff repair Family History Family History Father Acute myocardial infarction Mother Family history of multiple sclerosis Other Hypertension Social History Social History Smoking status: Never smoker Second hand tobacco smoke exposure: No Alcohol intake: current Drinks per week: 4 Alcohol use details: beer Substance use: never Substance use type: does not use Do You Feel Safe in your Home?: Yes Lack of Transportation: No Lack of Food: Never True Current Housing: I Have Housing Concerned About Future Housing: No Difficulty Paying Gas/Electric Bills: No Difficulty Paying for Meds: No Currently Unemployed: No Education: High School Diploma/GED Difficulty w/ Childcare or Family Care: No Living arrangements: alone Spiritual care concerns: No Anes - Eval Final PreProcedure Day of Procedure 08/20/24 08:54 Patient weight: obese Lungs: normal air movement Airway: Mallampati scale class II Neurological: alert and oriented Last oral intake: >/= 8 hours ASA classification: III Emergent: no Anesthetic plan: proceed Anesthesia type and monitoring: general LMA and standard monitoring Results Review: All pre-operative results and documents have been reviewed as part of the pre- operative evaluation. Hyperlipidemia, BMI 34, suspect AVRIL but no formal testing. Informed Consent: The patient's anesthetic plan and its attendant risks and benefits were discussed with the patient/family/POA. Questions were solicited and answers provided to the satisfaction of the patient/family/POA.
[2024-08-20] MEDS: ceFAZolin 2 GM/D5W 50 ML 2 GM/50 ML BAG IVPB (09:17)
[2024-08-20] MEDS: LIDOCAINE 1% LOCAL INJ 20 ML VIAL 10 ML INFILTRATE (09:39)
== END 2024-08-20 12:33 | disposition home or self-care (01) ==
PROVIDERS: PCP Family Medicine; Visit Provider Plastic Surgery
PROC: (CPT 26548; principal; 2024-08-20 09:15)
DX: S62.624P Displaced fracture of middle phalanx of right ring finger, subsequent encounter for fracture with malunion (principal); W22.8XXD Striking against or struck by other objects, subsequent encounter; E66.9 Obesity, unspecified; Z68.34 Body mass index [BMI] 34.0-34.9, adult
CPT/HCPCS: 26548; 99199; J0690; J1100; J2003; J2250; J2405; J2704; J3010; J7120

== ENCOUNTER 2024-09-01 08:37 | Outpatient (CLI) | payer BC, SELFPAY ==
--- NOTE | ~2024-09-01 | XR_ITS ---
XR hand RT min 3V Ordering provider: Milli Norwood PA-C History: . S62.624P - Displaced fracture of middle phalanx of right f/u . Comparison: August 18, 2024 FINDINGS: BONES: Postoperative changes seen in the proximal interphalangeal area of the fourth finger. Subluxat ion posteriorly is seen in the interphalangeal joint of the fifth finger. JOINT SPACES: Severe osteoarthritic changes of the proximal interphalangeal joint of the fourth and f ifth fingers. SOFT TISSUES: Soft tissue swelling seen in the distal fourth and fifth fingers. IMPRESSION: Postoperative changes in the proximal interphalangeal joint area of the fourth finger. Posterior subluxation of the proximal interphalangeal joint of the fifth finger. Reviewed, dictated and finalized at location A. IMPRESSION: Postoperative changes in the proximal interphalangeal joint area of the fourth finger. Posterior subluxation of the proximal interphalangeal joint of the fifth finger .
--- OUTSIDE RECORDS SUMMARY | 2024-09-01 08:58 | XMS_ITS | Clinical Summary ---
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
--- OUTSIDE RECORDS SUMMARY | 2024-09-01 08:58 | XMS_ITS | Referral Summary ---
Author Organization [facility] [place] 163 [facility] Address [address] [place] [address] Care Team Providers Care Clinical Dermatologist Name Role Phone Unknown, Notinfile Primary Care Provider Unavail able Allergies No known active allergies Medications No known medications Active Problems Problem Noted Date Diagnosed Date [place]-neck deformity of finger 10/12/2015 Social History Tobacco Use Types Packs/Day Years Used Date Smoking Tobacco: Never Personal Safety Answer Date Recorded Getting School Help Needed Not on file 08/10 Sex and Gender Information Value Date Recorded Sex Assigned at Not on file 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
== END 2024-09-01 08:38 | disposition home or self-care (01) ==
PROVIDERS: PCP Family Medicine; Visit Provider Physician Assistant Surgical
DX: S62.624P Displaced fracture of middle phalanx of right ring finger, subsequent encounter for fracture with malunion (principal); X58.XXXD Exposure to other specified factors, subsequent encounter
CPT/HCPCS: 73130

== ENCOUNTER 2024-09-16 07:45 | Outpatient (CLI) | payer BC, SELFPAY ==
--- NOTE | ~2024-09-16 | XR_ITS ---
Right Hand Technique: PA, oblique, and lateral views were obtained. Clinical History: Injury COMPARISON: 09/01/2024 Findings: No acute fracture or dislocation is seen. Severe degenerative change of the fourth PIP join t is again present, with stable orthopedic pin fixation across the joint. Stable severe degenerative change of the fifth PIP joint. There are mild to moderate degenerative changes of the fourth and fift h DIP joints. Stable dorsal subluxation at the fifth PIP joint. Soft tissues are unremarkable. Impression: No significant interval change. Status post orthopedic pin fixation across the fourth PIP joint with severe degenerative change at this joint. Stable severe degenerative change and dorsal subluxation at the fifth PIP joint. Reviewed, dictated and finalized at location . Impression: No significant interval change. Status post orthopedic pin fixation across the fourth PIP joint with severe degenerative change at this joint. Stable severe degenerative change and dorsal subluxation at the fifth PIP joint .
--- OUTSIDE RECORDS SUMMARY | 2024-09-16 07:51 | XMS_ITS | Clinical Summary ---
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
--- OUTSIDE RECORDS SUMMARY | 2024-09-16 07:51 | XMS_ITS | Referral Summary ---
Author Organization [facility] [place] 163 [facility] Address [address] [place] [address] Care Team Providers Care Real Estate Marketing Coordinator Name Role Phone Unknown, Notinfile Primary Care Provider Unavail able Allergies No known active allergies Medications No known medications Active Problems Problem Noted Date Diagnosed Date [place]-neck deformity of finger 10/12/2015 Social History Tobacco Use Types Packs/Day Years Used Date Smoking Tobacco: Never Personal Safety Answer Date Recorded Getting School Help Needed Not on file 08/10 Sex and Gender Information Value Date Recorded Sex Assigned at Not on file 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
== END 2024-09-16 07:46 | disposition home or self-care (01) ==
PROVIDERS: PCP Family Medicine; Visit Provider Physician Assistant Surgical
DX: S69.90XA Unspecified injury of unspecified wrist, hand and finger(s), initial encounter (principal); X58.XXXA Exposure to other specified factors, initial encounter
CPT/HCPCS: 73130

== ENCOUNTER 2024-09-30 15:27 | Outpatient (CLI) | payer BC, SELFPAY ==
--- NOTE | ~2024-09-30 | XR_ITS ---
XR finger 4th RT min 2V Ordering provider: Milli Norwood PA-C History: . S62.624P - Displaced fracture of middle phalanx of right ... . Comparison: September 16, 2024 FINDINGS: BONES: Status post removal of the pin seen previously. Residual screw is noted in the middle phalanx of the fourth finger. JOINT SPACES: Severe osteoarthritic changes of the proximal and distal interphalangeal joint of the f ourth and fifth fingers. SOFT TISSUES: Normal. IMPRESSION: No acute osseous abnormality. Severe osteoarthritic changes of the proximal and distal interphalangeal joints of the fourth and fif th finger. Postoperative changes. Reviewed, dictated and finalized at location A. IMPRESSION: No acute osseous abnormality. Severe osteoarthritic changes of the proximal and distal interphalangeal joints of the fourth and fifth finger. Postoperative changes.
--- OUTSIDE RECORDS SUMMARY | 2024-09-30 15:31 | XMS_ITS | Referral Summary ---
Author Organization [facility] [place] 163 [facility] Address [address] [place] [address] Care Team Providers Care Condenser Cleaner Name Role Phone Unknown, Notinfile Primary Care Provider Unavail able Allergies No known active allergies Medications No known medications Active Problems Problem Noted Date Diagnosed Date [place]-neck deformity of finger 10/12/2015 Social History Tobacco Use Types Packs/Day Years Used Date Smoking Tobacco: Never Personal Safety Answer Date Recorded Getting School Help Needed Not on file 08/10 Sex and Gender Information Value Date Recorded Sex Assigned at Not on file 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
--- OUTSIDE RECORDS SUMMARY | 2024-09-30 15:31 | XMS_ITS | Clinical Summary ---
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
== END 2024-09-30 15:28 | disposition home or self-care (01) ==
LOC: ANHIMG 15:28
PROVIDERS: PCP Family Medicine; Visit Provider Physician Assistant Surgical
DX: S62.624P Displaced fracture of middle phalanx of right ring finger, subsequent encounter for fracture with malunion (principal); X58.XXXD Exposure to other specified factors, subsequent encounter; M19.041 Primary osteoarthritis, right hand
CPT/HCPCS: 73140

== ENCOUNTER 2024-11-07 07:59 | Outpatient (CLI) | payer BC, SELFPAY ==
--- NOTE | ~2024-11-07 | XR_ITS ---
XR hand RT min 3V 11/07/2024 08:13 Indication: Right hand pain. Fracture. Procedure: 3 views right hand Comparison: Comparison to multiple prior studies sequentially, with oldest reviewed study dated 09/16. Findings: Severe polyarticular osteoarthritis of the fourth and fifth proximal interphalangeal joints with loose body adjacent to the fourth PIP joint, sequela of previous fracture treated with 10 on .. No acute fracture identified. No soft tissue abnormality. 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 2: No acute fracture. Reviewed, dictated and finalized at location B. Impression: 1: Severe osteoarthritis of the fourth and fifth proximal interphalangeal joint s. 2: No acute fracture.
--- OUTSIDE RECORDS SUMMARY | 2024-11-07 08:03 | XMS_ITS | Referral Summary ---
Author Organization [facility] [place] 163 [facility] Address [address] [place] [address] Care Team Providers Care Registered Dietician Name Role Phone Unknown, Notinfile Primary Care Provider Unavail able Allergies No known active allergies Medications No known medications Active Problems Problem Noted Date Diagnosed Date [place]-neck deformity of finger 10/12/2015 Social History Tobacco Use Types Packs/Day Years Used Date Smoking Tobacco: Never Personal Safety Answer Date Recorded Getting School Help Needed Not on file 08/10 Sex and Gender Information Value Date Recorded Sex Assigned at Not on file 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
--- OUTSIDE RECORDS SUMMARY | 2024-11-07 08:03 | XMS_ITS | Clinical Summary ---
Author Organization [facility] [place] 163 [facility] Address 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
== END 2024-11-07 08:00 | disposition home or self-care (01) ==
PROVIDERS: PCP Family Medicine; Visit Provider Physician Assistant Surgical
DX: M19.041 Primary osteoarthritis, right hand (principal)
CPT/HCPCS: 73130

== ENCOUNTER 2025-01-09 12:40 | Outpatient (CLI) | payer BC, SELFPAY ==
--- NOTE | ~2025-01-09 | MR_ITS ---
MRI of the right hip Clinical history: Pain Technique: Coronal T1-weighted, T2-weighted, and proton-density fat-sat images, and axial T1-weighted and proton-density fat-sat images were acquired through the pelvis. Coronal T2-weighted images and c oronal, axial, and sagittal proton-density fat-sat images were acquired through the right hip. Findings: There is no fracture or avascular necrosis of either hip. There is diffuse grade IV chondro malacia throughout the right hip joint with joint space narrowing and osteophyte formation at the fem oral head neck junction and acetabular margins. There is reactive marrow edema at the superior aspect of the right femoral head and the remainder of the right acetabulum. There is mild chondromalacia of the left hip joint. Small right hip joint effusion is present, presumably reactive. There is minimal degenerative attenuation of the right acetabular labrum. Visualized musculature about the pelvis and right hip is unremarkable. No muscle atrophy or edema. Vi sualized tendons are intact. No soft tissue mass or fluid collection evident. IMPRESSION: Severe right hip joint osteoarthritis with reactive areas of marrow edema at the superior aspect of t he right femoral head and in the roof of the right acetabulum. Small right hip joint effusion, presumably reactive. Reviewed, dictated and finalized at location . IMPRESSION: Severe right hip joint osteoarthritis with reactive areas of marrow edema at th e superior aspect of the right femoral head and in the roof of the right acetab ulum. Small right hip joint effusion, presumably reactive.
== END 2025-01-09 12:41 | disposition home or self-care (01) ==
LOC: GOSHIMG 12:41
PROVIDERS: PCP Chiropractor; Visit Provider Family Medicine
DX: M16.11 Unilateral primary osteoarthritis, right hip (principal); M25.451 Effusion, right hip
CPT/HCPCS: 73721